=== PATIENT | female | born 1960 | race Caucasian/White ===

== ENCOUNTER 2021-05-04 10:39 | Outpatient (CLI) | payer BC, SELFPAY ==
--- NOTE | ~2021-05-04 | US_ITS ---
US abdomen limited INDICATION: Right upper quadrant abdominal pain PROCEDURE: Realtime right upper abdominal ultrasound. COMPARISON: No prior studies for comparison. FINDINGS: The pancreas is normal without focal mass or pancreatic ductal dilation. Liver echotexture is normal. No focal hepatic masses. There is normal directional flow in the portal vein. The gallbladder is normal without stones, gallbladder wall thickening or pericholecystic fluid. Comm on bile duct measures 4 mm. No sonographic Stephens's sign. IMPRESSION: 1: Normal limited abdominal ultrasound. Reviewed, dictated and finalized at location A.
== END 2021-05-04 10:40 | disposition home or self-care (01) ==
PROVIDERS: PCP Internal Medicine; Visit Provider Nurse Practitioner
DX: R10.11 Right upper quadrant pain (principal)
CPT/HCPCS: 76705

== ENCOUNTER 2022-06-01 16:13 | Emergency (ER) | payer BC, SELFPAY ==
--- NOTE | 2022-06-01 16:25 | ED.SKABFB ---
HPI - Skin/Abscess/Foreign Bdy General Chief complaint: Skin/Abscess/Foreign Body Stated complaint: poison laxmi Time Seen by Provider: 06/01/22 16:25 Source: patient Mode of arrival: ambulatory Limitations: no limitations History of Present Illness HPI narrative: 61-year-old female presents with complaint of poison laxmi for 3-4 days. States that rash started after doing yd work at her symptoms. States started to left arm and is now spread to right arm, bilateral legs and forehead. Using calamine lotion with no relief. Taking any medication to treat itching. All systems reviewed and negative except as noted above. Related Data Allergies Allergy/AdvReac Type Severity Reaction Status Date / Time iodine Allergy Unknown vomiting Verified 06/01/22 16:20 Review of Systems Review of Systems: CONSTITUTIONAL: Denies fever, chills, or sweats. EYES: Denies visual changes, redness, or discharge. ENT: Denies rhinorrhea, congestion, sore throat, or otalgia. CARDIOVASCULAR: Denies chest pain, palpitations, or edema. RESPIRATORY: Denies cough or dyspnea. GASTROINTESTINAL: Denies abdominal pain, nausea, vomiting, or diarrhea. GENITOURINARY: Denies dysuria or hematuria. SKIN: Reports itchy rash to bilateral arms and legs. MUSCULOSKELETAL: Denies back pain, joint pain, or myalgia. NEUROLOGIC: Denies headache, numbness, or weakness. PSYCHIATRIC: Denies anxiety or depression. All other systems reviewed are negative, except as documented in HPI. [facility] Past Medical History Medical History Abnormal CT scan of lung Allergic rhinitis Asthma Back pain Eczema Epigastric pain Essential (primary) hypertension Gastroesophageal reflux disease Mixed hyperlipidemia Postmenopausal Sarcoidosis of lung Screening for breast cancer Vitamin D deficiency, unspecified Family History Family History Sibling Asthma Family history of malignant neoplasm of uterus Mother Patient's mother is in good health Father Patient's father is Acute myocardial infarction Grandparent Diabetes mellitus Family history of malignant neoplasm of breast in first degree relative Other Family history of cardiovascular disease Family history of malignant neoplasm Family history of malignant neoplasm of male breast Hypertension Social History Social History Smoking packs per day: 0.75 Smoking cigarettes per day: 15.0 Years smoked: 10 Smoking pack-years: 7.50 Smoking status: Never smoker Tobacco type: cigarettes Second hand tobacco smoke exposure: Yes Smoking end date: 02/12/89 Alcohol intake: never Substance use: never Comments At time of signature, agree with nursing past medical, surgical, social and family history. There is no relevant family history pertinent to the presenting complaint. Exam Narrative: GENERAL: This is a well-nourished, well-developed patient, in no apparent distress. HEAD: normocephalic, atraumatic. EYES: PERRL. Sclera clear/white. Vision is grossly intact. EARS: External ears normal NOSE: External nose normal NECK: Neck supple, non-tender without lymphadenopathy, masses or thyromegaly. CARDIOVASCULAR: Regular rate and rhythm without murmurs, gallops, or rubs. RESPIRATORY: Clear to auscultation. Breath sounds equal bilaterally. No wheezes, rales, or rhonchi. SKIN: warm, Dry, intact, good texture and turgor. Erythematous fascicular rash to bilateral arms, bilateral legs, mild rash to forehead. NEURO: awake, alert, and oriented to person, place and time. There were no obvious focal neurologic abnormalities. EXTREMITIES: No joint tenderness, effusion, or edema noted. Course Course Level of Care: Express Care Visit Vital Signs Vital signs: Reviewed MDM - Skin/Abscess/Foreign Bdy MDM Narrative Medical decision making
[2022-06-01 16:26] VITALS: BP 137/77; PULSE 66; RESP 16; TEMP 36.4; O2SAT 100
== END 2022-06-01 16:42 | disposition home or self-care (01) ==
PROVIDERS: Emergency Provider Nurse Practitioner Family; PCP Internal Medicine
DX: L25.5 Unspecified contact dermatitis due to plants, except food (principal); Z87.891 Personal history of nicotine dependence; J45.909 Unspecified asthma, uncomplicated; I10 Essential (primary) hypertension; K21.9 Gastro-esophageal reflux disease without esophagitis; E78.2 Mixed hyperlipidemia
CPT/HCPCS: 99213; G0463

== ENCOUNTER 2022-10-04 10:40 | Outpatient (RCR) | payer BC, SELFPAY ==
[2022-10-04 10:44] VITALS: BMI 31.9
[2022-10-04 10:45] VITALS: BMI 31.9
== END 2022-12-18 10:56 | disposition home or self-care (01) ==
LOC: ANHDMC 10:40
PROVIDERS: PCP Nurse Practitioner Family; Visit Provider Nurse Practitioner Family
DX: E78.5 Hyperlipidemia, unspecified (principal); I10 Essential (primary) hypertension; E66.9 Obesity, unspecified; Z68.32 Body mass index [BMI] 32.0-32.9, adult; Z71.3 Dietary counseling and surveillance
CPT/HCPCS: 97802

== ENCOUNTER 2022-12-28 02:06 | Day surgery (SDC) | payer BC, SELFPAY ==
[2022-12-13 13:30] VITALS: BMI 31.8
--- NOTE | 2022-12-26 14:10 | SUR.PREOP ---
Patient called regarding upcoming procedure. Reviewed preop instructions, appointment times, and procedure prep.
--- NOTE | 2022-12-27 16:56 | PM.HPGS ---
History of Present Illness History of Present Illness Consent: Risks, benefits, and alternatives have been discussed and questions answered. Patient agrees to proceed with procedure. Chief complaint: neoplasm screening Narrative: Mindy Phillips is a 62 year old female Referred for colon cancer screening. Her last colonoscopy was 11 years ago. Review of Systems Review of Systems: All systems reviewed & are unremarkable except as noted in HPI and below PMFSH Past Medical History Medical History Abnormal CT scan of lung Allergic rhinitis Asthma Back pain Eczema Epigastric pain Essential (primary) hypertension Gastroesophageal reflux disease Mixed hyperlipidemia Postmenopausal Sarcoidosis of lung Screening for breast cancer Vitamin D deficiency, unspecified Family History Family History Sibling Asthma Family history of malignant neoplasm of uterus Mother Patient's mother is in good health Father Patient's father is Acute myocardial infarction Grandparent Diabetes mellitus Family history of malignant neoplasm of breast in first degree relative Other Family history of cardiovascular disease Family history of malignant neoplasm Family history of malignant neoplasm of male breast Hypertension Social History Social History Smoking packs per day: 0.5 Smoking cigarettes per day: 10.0 Years smoked: 5 Smoking pack-years: 2.50 Smoking status: Former smoker Tobacco type: cigarettes Second hand tobacco smoke exposure: Yes Smoking end date: 02/12/89 Alcohol intake: never Substance use: never Substance use type: does not use Lack of Transportation: No Lack of Food: Never True Current Housing: I Have Housing Concerned About Future Housing: No Difficulty Paying Gas/Electric Bills: No Difficulty Paying for Meds: No Currently Unemployed: No Education: High School Diploma/GED Difficulty w/ Childcare or Family Care: No Living arrangements: with family Spiritual care concerns: No Meds Home Medications and Allergies Home Medications Medication Instructions Recorded Confirmed Type albuterol sulfate 90 mcg/actuation 2 puff inhalation Q4H PRN 11/02/21 12/28/22 Rx aerosol inhaler (ProAir HFA) shortness of breath or wheezing #8.5 grams lisinopril 10 See Rx Instructions .Route 05/22/22 12/28/22 Rx mg-hydrochlorothiazide 12.5 mg .COMPLEX #270 tabs tablet cholecalciferol (vitamin D3) 50 100 mcg PO DAILY #90 caps 09/12/22 12/28/22 Rx mcg (2,000 unit) capsule omeprazole 20 mg capsule,delayed 20 mg PO DAILY #90 caps 10/31/22 12/28/22 Rx release Allergies Allergy/AdvReac Type Severity Reaction Status Date / Time iodine Allergy Unknown vomiting Verified 12/28/22 06:45 Exam Const: General: alert Orientation/consciousness: patient oriented x3 Resp: Auscultation: clear to auscultation bilaterally Cardio: Rhythm: regular rhythm GI: GI Palp: Yes Soft to palpation and No Tenderness to palpation present (GI) Neuro: General: patient oriented x3 Assessment and Plan Assessment and plan (1) Screening for colon cancer: Code(s): Z12.11 - Encounter for screening for malignant neoplasm of colon Status: Acute Assessment and Plan: Colonoscopy with possible biopsy or polypectomy or cautery or injection of substances.
[2022-12-28 06:39] VITALS: BP 135/69; PULSE 69; RESP 16; TEMP 36.4; O2SAT 100; BMI 32.1
[2022-12-28] MEDS: LACTATED RINGERS 1,000 ML 150 ML IV CONT (06:57)
--- NOTE | 2022-12-28 07:44 | WPDANESEPPF ---
Anes - Initial Pre Proc Eval Procedure: Operation Date: 12/28/22 08:00 Proposed Procedures p Screening Colonoscopy - Mejia Cummings MD Date/Time: 12/28/22 07:44 Surgeon: Mejia Cummings MD Pre Op Diagnosis: neoplasm screening Patient Data Age: 62 Gender: F Height: 1.65 m Weight: 87.6 kg Last Vital Signs Temp 97.6 F 12/28/22 06:39 Pulse 69 12/28/22 06:39 Resp 16 12/28/22 06:39 BP 135/69 12/28/22 06:39 Pulse Ox 100 12/28/22 06:39 O2 Del Method Room Air 12/28/22 06:39 Allergies Allergy/AdvReac Type Severity Reaction Status Date / Time iodine Allergy Unknown vomiting Verified 12/28/22 06:45 Home Medications Medication Instructions Recorded Confirmed Type albuterol sulfate 90 mcg/actuation 2 puff inhalation Q4H PRN 11/02/21 12/28/22 Rx aerosol inhaler (ProAir HFA) shortness of breath or wheezing #8.5 grams lisinopril 10 See Rx Instructions .Route 05/22/22 12/28/22 Rx mg-hydrochlorothiazide 12.5 mg .COMPLEX #270 tabs tablet cholecalciferol (vitamin D3) 50 100 mcg PO DAILY #90 caps 09/12/22 12/28/22 Rx mcg (2,000 unit) capsule omeprazole 20 mg capsule,delayed 20 mg PO DAILY #90 caps 10/31/22 12/28/22 Rx release Patient hx anesthesia problems: none Family hx anesthesia problems: none Results Review: All pre-operative results and documents have been reviewed as part of the pre-operative evaluation. [facility] Past Medical History Medical History Abnormal CT scan of lung Allergic rhinitis Asthma Back pain Eczema Epigastric pain Essential (primary) hypertension Gastroesophageal reflux disease Mixed hyperlipidemia Postmenopausal Sarcoidosis of lung Screening for breast cancer Vitamin D deficiency, unspecified Family History Family History Sibling Asthma Family history of malignant neoplasm of uterus Mother Patient's mother is in good health Father Patient's father is Acute myocardial infarction Grandparent Diabetes mellitus Family history of malignant neoplasm of breast in first degree relative Other Family history of cardiovascular disease Family history of malignant neoplasm Family history of malignant neoplasm of male breast Hypertension Social History Social History Smoking packs per day: 0.5 Smoking cigarettes per day: 10.0 Years smoked: 5 Smoking pack-years: 2.50 Smoking status: Former smoker Tobacco type: cigarettes Second hand tobacco smoke exposure: Yes Smoking end date: 02/12/89 Alcohol intake: never Substance use: never Substance use type: does not use Lack of Transportation: No Lack of Food: Never True Current Housing: I Have Housing Concerned About Future Housing: No Difficulty Paying Gas/Electric Bills: No Difficulty Paying for Meds: No Currently Unemployed: No Education: High School Diploma/GED Difficulty w/ Childcare or Family Care: No Living arrangements: with family Spiritual care concerns: No Anes - Eval Final PreProcedure Day of Procedure 12/28/22 07:44 Patient weight: obese Heart: regular rate and rhythm Lungs: clear to auscultation Airway: Mallampati scale class II Neurological: alert and oriented Last oral intake: >/= 8 hours ASA classification: III Emergent: no Anesthetic plan: proceed Anesthesia type and monitoring: general GIVS and standard monitoring Results Review: All pre-operative results and documents have been reviewed as part of the pre-operative evaluation. Informed Consent: The patient's anesthetic plan and its attendant risks and benefits were discussed with the patient/family/POA. Questions were solicited and answers provided to the satisfaction of the patient/family/POA.
[2022-12-28 08:09] VITALS: BP 101/63; PULSE 58; RESP 16; O2SAT 100
[2022-12-28 08:19] VITALS: BP 128/70; PULSE 53; RESP 16; O2SAT 100
[2022-12-28 08:29] VITALS: BP 135/73; PULSE 54; RESP 18; O2SAT 100
== END 2022-12-28 08:34 | disposition home or self-care (01) ==
PROVIDERS: PCP Nurse Practitioner Family; Visit Provider Internal Medicine Gastroenterology
PROC: 0DJD8ZZ Inspection of Lower Intestinal Tract, Via Natural or Artificial Opening Endoscopic (ICD-10-PCS; CPT 45378; principal; 2022-12-28 08:00)
DX: Z12.11 Encounter for screening for malignant neoplasm of colon (principal); D12.8 Benign neoplasm of rectum; I10 Essential (primary) hypertension; K21.9 Gastro-esophageal reflux disease without esophagitis; J45.909 Unspecified asthma, uncomplicated; E55.9 Vitamin D deficiency, unspecified; E78.2 Mixed hyperlipidemia; Z79.51 Long term (current) use of inhaled steroids; Z79.899 Other long term (current) drug therapy; Z87.891 Personal history of nicotine dependence; Z82.49 Family history of ischemic heart disease and other diseases of the circulatory system
CPT/HCPCS: 45385; 88305; J2704; J7120

== ENCOUNTER 2023-03-20 08:00 | Outpatient (CLI) | payer BC, SELFPAY ==
--- NOTE | ~2023-03-20 | MM_ITS ---
EXAMINATION: MM screening [facility] BI w félix HISTORY: Screening mammogram TECHNIQUE: Craniocaudal and mediolateral oblique 3-D tomosynthesis images were obtained and synthetic 2-D images were generated. CAD analysis was submitted and interpreted. COMPARISON: March 22, 2015 diagnostic bilateral mammogram and right breast ultrasound examination, reported negative BREAST PARENCHYMAL COMPOSITION: The breasts are almost entirely fatty. FINDINGS: There is no evidence of suspicious mass, calcification, or architectural distortion to sugg est malignancy in either breast. There has been no suspicious interval change. IMPRESSION: 1. No mammographic evidence of malignancy. 2. Recommend routine screening mammography in one year. BI-RADS Category 1: Negative Reviewed, dictated and finalized at location A. 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
== END 2023-03-20 08:01 | disposition home or self-care (01) ==
PROVIDERS: PCP Nurse Practitioner Family; Visit Provider Nurse Practitioner
DX: Z12.31 Encounter for screening mammogram for malignant neoplasm of breast (principal)
CPT/HCPCS: 77063; 77067

== ENCOUNTER 2024-06-03 07:53 | Outpatient (CLI) | payer BC, SELFPAY ==
--- NOTE | ~2024-06-03 | MM_ITS ---
EXAMINATION: MM screening [facility] BI w félix HISTORY: Screening TECHNIQUE: Craniocaudal and mediolateral oblique 3-D tomosynthesis images were obtained and synthetic 2-D images were generated. CAD analysis was submitted and interpreted. COMPARISON: Comparison to multiple prior studies sequentially, with oldest reviewed study dated 09/2015. BREAST PARENCHYMAL COMPOSITION: Not Dense: The breasts are almost entirely fatty. FINDINGS: There is no evidence of suspicious mass, calcification, or architectural distortion to sugg est malignancy in either breast. There has been no suspicious interval change. IMPRESSION: 1. No mammographic evidence of malignancy. 2. Recommend routine screening mammography in one year. BI-RADS Category 1: Negative Reviewed, dictated and finalized at location A.
== END 2024-06-03 07:54 | disposition home or self-care (01) ==
PROVIDERS: PCP Nurse Practitioner Family; Visit Provider Nurse Practitioner Family
DX: Z12.31 Encounter for screening mammogram for malignant neoplasm of breast (principal)
CPT/HCPCS: 77063; 77067